=== PATIENT | female | born 1945 | race Caucasian/White ===

== ENCOUNTER 2016-10-15 09:02 | Day surgery (SDC) | payer BC ==
--- NOTE | ~2016-10-15 | EGD ---
EGD REPORT [facility] [address] [place]. [address] NAME: IRCKY CARR : [birth year] STATUS : REG [facility]#: [id number] AGE: 70 ADM/REG DATE : 10/15/16 MR#: [id number] REPORT SERV DATE: 10/15/16 DICTATED BY: JOSHUA VILLA DATE: 10/15/16 REPORT STATUS : Draft [facility] DATE: 10/15/16 Endoscopy Center Patient Name: Ricky Carr Date of : 1945 Attending MD: JOSHUA VILLA, Procedure Date No Time: 10/15/2016 Procedure: Upper GI endoscopy Indications: Heartburn Referring MD: MARYSOL GASCA MD Medicines: Monitored Anesthesia Care Complications: No immediate complications. Estimated blood loss: None. Procedure: Pre-Anesthesia Assessment: - ASA Grade Assessment: III - A patient with severe systemic disease. After obtaining informed consent, the endoscope was passed under direct vision. Throughout the procedure, the patient's blood pressure, pulse, and oxygen saturations were monitored continuously. The GIF H190 [id number] was introduced through the mouth, and advanced to the second part of duodenum. The upper GI endoscopy was accomplished without difficulty. The patient tolerated the procedure well. Findings: LA Grade C (one or more mucosal breaks continuous between tops of 2 or more mucosal folds, less than 75% circumference) esophagitis with no bleeding was found in the lower third of the esophagus. Biopsies were taken with a cold forceps for histology. Verification of patient identification for the specimen was done. Estimated blood loss was minimal. A 7 cm hiatus hernia was found. The exam of the stomach was otherwise normal. The examined duodenum was normal. Impression: - LA Grade C reflux esophagitis. Biopsied. - Hiatus hernia. - Normal examined duodenum. Recommendation: - Return to previous diet. - Continue present medications. - Use Protonix (pantoprazole) 40 mg PO BID. - Repeat the upper endoscopy in 3 months to check healing. Procedure Code(s): --- Professional --- EGD REPORT [facility] [address] [facility] [address] [place]. [address] NAME: RICKY CARR : [birth year] STATUS : REG [facility] PAT#: [id number] AGE: 70 ADM/REG DATE : 10/15/16 MR#: [id number] REPORT SERV DATE: 10/15/16 DICTATED BY: JOSHUA VILLA DATE: 10/15/16 REPORT STATUS : Draft TRANSCRIBED BY: [employer] DATE: 10/15/16 73098, Esophagogastroduodenoscopy, flexible, transoral; with biopsy, single or multiple Diagnosis Code(s): --- Professional --- K21.0, Gastro-esophageal reflux disease with esophagitis K44.9, Diaphragmatic hernia without obstruction or gangrene R12, Heartburn CPT copyright 2013 [employer]. All rights reserved. The codes documented in this report are preliminary and upon milk receiver review may be revised to meet current compliance requirements. JOSHUA VILLA, 10/15/2016 10:51 AM Number of Addenda: 0 Note Initiated On: 10/15/2016 10:24 AM Scope Withdrawal Time 0 hours 0 minutes 0 seconds [address] [facility] [place] [place] [address]
--- NOTE | ~2016-10-15 | EGD ---
EGD REPORT [facility] [address] [place]. [address] NAME: RICKY CRAR : 41 STATUS : REG [facility]#: [id number] AGE: 70 ADM/REG DATE : 10/15/16 MR#: [id number] REPORT SERV DATE: 10/15/16 DICTATED BY: JOSHUA VILLA DATE: 10/15/16 REPORT STATUS : Draft [facility]: [facility] DATE: 10/15/16 Endoscopy Center Patient Name: Ricky Carr Date of : 1945 Attending MD: JOSHUA VILLA, Procedure Date No Time: 10/15/2016 Procedure: Colonoscopy Indications: Follow-up of Crohn's disease of the colon Referring MD: MARYSOL GASCA MD Medicines: Monitored Anesthesia Care Complications: No immediate complications. Estimated blood loss: None. Procedure: Pre-Anesthesia Assessment: - ASA Grade Assessment: III - A patient with severe systemic disease. After I obtained informed consent, the scope was passed under direct vision. Throughout the procedure, the patient's blood pressure, pulse, and oxygen saturations were monitored continuously. The [facility] [id number] was introduced through the anus and advanced to the terminal ileum. The colonoscopy was performed without difficulty. The patient tolerated the procedure well. The quality of the bowel preparation was good. Findings: The perianal and digital rectal examinations were normal. The terminal ileum appeared normal. Normal mucosa was found in the transverse colon, in the ascending colon and in the cecum. Biopsies were taken with a cold forceps for histology. Verification of patient identification for the specimen was done. Estimated blood loss was minimal. Normal mucosa was found in the sigmoid colon and in the descending colon. Biopsies were taken with a cold forceps for histology. Verification of patient identification for the specimen was done. Estimated blood loss was minimal. A patchy area of mildly erythematous mucosa was found in the rectum. Biopsies were taken with a cold forceps for histology. Verification of patient identification for the specimen was done. Estimated blood loss was minimal. The exam was otherwise without abnormality on direct and retroflexion views. Impression: - The examined portion of the ileum was normal. - Normal mucosa in the transverse colon, in the ascending colon and in the cecum. Biopsied. - Normal mucosa in the sigmoid colon and in the EGD REPORT [place] [address] [place]. [address] NAME: RICKY CARR : [birth year] STATUS : REG [facility]#: [id number] AGE: 70 ADM/REG DATE : 10/15/16 MR#: [id number] REPORT SERV DATE: 10/15/16 DICTATED BY: JOSHUA VILLA DATE: 10/15/16 REPORT STATUS : Draft TRANSCRIBED BY: [employer] DATE: 10/15/16 descending colon. Biopsied. - Erythematous mucosa in the rectum. Biopsied. - The examination was otherwise normal on direct and retroflexion views. Recommendation: - Patient has a contact number available for emergencies. The signs and symptoms of potential delayed complications were discussed with the patient. Return to normal activities tomorrow. Written discharge instructions were provided to the patient. - Return to previous diet. - Continue present medications. - Await pathology results. Procedure Code(s): --- Professional --- 03129, Colonoscopy, flexible, proximal to splenic flexure; with biopsy, single or multiple Diagnosis Code(s): --- Professional --- K50.10, Crohn's disease of large intestine without complications K62.9, Disease of anus and rectum, unspecified CPT copyright 2013 [employer]. All rights reserved. The codes documented in this report are preliminary and upon suction roller review may be revised to meet current compliance requirements. JOSHUA ALLEN, 10/15/2016 11:36 AM Number of Addenda: 0 Note Initiated On: 10/15/2016 10:20 AM Scope Withdrawal Time 0 hours 10 minutes 8 seconds [address] [place] [address]
[~2016-10-15 09:02] MED LIST: AVAP150 PO; BENICAR20 PO; CALTRA600D PO; CARDCD300 PO; CARTIA XT120 MG/24 PO; CELEXA20 PO; COREG3 PO; FEMARA PO; FERGON240 MG PO; HUM; HUMIRA PEN SC; IMDUR30 PO; IRON PO; MEVACOR40 MG PO; MOBIC7.5 PO; NEXIUM40 PO; NOLV10 PO; PREV30 PO; PROTONIX PO; SULFAZINE EC500 MG PO; ZANAFLEX 4 MG TA4 MG PO
== END 2016-10-15 23:59 | disposition home or self-care (01) ==
LOC: DMU 09:02
PROVIDERS: Internal Medicine Gastroenterology
PROC: 0DBH8ZX Excision of Cecum, Via Natural or Artificial Opening Endoscopic, Diagnostic (ICD-10-PCS; 2016-10-15)
PROC: 0DBK8ZX Excision of Ascending Colon, Via Natural or Artificial Opening Endoscopic, Diagnostic (ICD-10-PCS; 2016-10-15)
PROC: 0DBL8ZX Excision of Transverse Colon, Via Natural or Artificial Opening Endoscopic, Diagnostic (ICD-10-PCS; 2016-10-15)
PROC: 0DBM8ZX Excision of Descending Colon, Via Natural or Artificial Opening Endoscopic, Diagnostic (ICD-10-PCS; 2016-10-15)
PROC: 0DB38ZX Excision of Lower Esophagus, Via Natural or Artificial Opening Endoscopic, Diagnostic (ICD-10-PCS; 2016-10-15)
PROC: 0DBN8ZX Excision of Sigmoid Colon, Via Natural or Artificial Opening Endoscopic, Diagnostic (ICD-10-PCS; principal; 2016-10-15 10:30)
PROC: 0DBP8ZX Excision of Rectum, Via Natural or Artificial Opening Endoscopic, Diagnostic (ICD-10-PCS; 2016-10-15 10:30)
DX: K52.9 Noninfective gastroenteritis and colitis, unspecified (principal); K50.10 Crohn's disease of large intestine without complications; K21.0 Gastro-esophageal reflux disease with esophagitis; K22.10 Ulcer of esophagus without bleeding; K44.9 Diaphragmatic hernia without obstruction or gangrene; I10 Essential (primary) hypertension; M45.9 Ankylosing spondylitis of unspecified sites in spine; Z95.0 Presence of cardiac pacemaker; Z88.5 Allergy status to narcotic agent; Z79.899 Other long term (current) drug therapy
CPT/HCPCS: 88305; 88312

== ENCOUNTER 2016-12-01 23:00 | Emergency (ER) | payer BC ==
[2016-12-02 00:19] LABS: BASOPHILS 0.2 %; BASOPHILS ABSOLUTE 0.02 10/3/uL (0.0-0.16); EOSINOPHILS 0 %; ER CBC TAT 0 Hrs 07 Mins; HEMATOCRIT 32.9 % (36.0-48.0); HEMOGLOBIN 10.9 g/dL (12.0-16.0); IMMATURE GRANULOCYTES 0.2 %; IMMATURE GRANULOCYTES ABSOLUTE 0.02 10/3/uL (0.0-0.11); LYMPHOCYTES 10.8 %; LYMPHOCYTES ABSOLUTE 1.03 10/3/uL (0.67-4.30); MEAN CORPUS HGB CONC 33.1 g/dL (32.0-36.0); MEAN CORPUSCULAR HEMOGLOB 29.2 pg (26.0-34.0); MEAN CORPUSCULAR VOLUME 88.2 fL (80-100); MEAN PLATELET VOLUME 13.1 fL (9.2-13.0); MONOCYTES 13.9 %; MONOCYTES ABSOLUTE 1.32 10/3/uL (0.21-1.20); NEUTROPHILS 74.9 %; NEUTROPHILS ABSOLUTE 7.12 10/3/uL (2.02-8.40); RBC DISTRIBUTION WIDTH 13.2 % (12.0-16.0); RED CELL COUNT 3.73 10/6/uL (4.0-5.6); WHITE BLOOD CELLS 9.5 10/3/uL (4.5-10.5)
[2016-12-02 00:20] LABS: MANUAL DIFF NO %; PLATELET COUNT 144 10/3/uL (150-400)
[2016-12-02 00:36] LABS: ASCORBIC ACID (UR NOT ORDER) NEG (NEG); BILIRUBIN, URINE NEGATIVE (NEG); ER URINALYSIS TAT 0 Hrs 00 Mins; KETONE, URINE NEGATIVE (NEG); LEUKOCYTE ESTERASE(NOT OR TRACE (NEG); NITRITE (URINE) NEG (NEG); WBC (NOT ORDERED) (RFLEX) 16 (0-5)
[2016-12-02 00:38] LABS: LACTATE 1.6 MMOL/L (0.3-2.4)
[2016-12-02 02:18] LABS: BUN (BLOOD UREA NITROGEN) 28 MG/DL (6-23); CALCIUM, SERUM 8.7 MG/DL (8.5-10.4); CHLORIDE, SERUM 101 MMOL/L (96-112); CO2 (CARBON DIOXIDE) 25 MMOL/L (24-34); CREATININE 2.16 MG/DL (0.55-1.02); GFR AFRICAN AMERICAN 26 ML/MIN (>=60); GFR NON AFRICAN AMERICAN 22 ML/MIN (>=60); GLUCOSE, SERUM 101 MG/DL (60-99); POTASSIUM, SERUM 3.3 MMOL/L (3.5-5.3); SGOT(AST) 38 U/L (5-40); SGPT(ALT) 23 U/L (5-65); SODIUM, SERUM 139 MMOL/L (135-148); TOTAL BILIRUBIN 0.3 MG/DL (0-1.2); TOTAL PROTEIN 6.6 G/DL (6.0-8.5)
[2016-12-02 02:21] LABS: A/G RATIO 0.7 (0.7-1.9); ALBUMIN 2.7 G/DL (3.5-5.0); ALKALINE PHOSPHATASE 120 U/L (45-117); GLOBULIN 3.9 G/DL (2.5-4.1)
[2016-12-02 02:45] LABS: PROCALCITONIN 2.44 ng/mL (<0.5)
== END 2016-12-02 02:52 | disposition home or self-care (01) ==
LOC: ER 23:00
PROVIDERS: Emergency Medicine
DX: N28.9 Disorder of kidney and ureter, unspecified (principal); N39.0 Urinary tract infection, site not specified; F41.9 Anxiety disorder, unspecified; Z95.0 Presence of cardiac pacemaker; Z88.5 Allergy status to narcotic agent; Z88.1 Allergy status to other antibiotic agents; Z88.8 Allergy status to other drugs, medicaments and biological substances; Z79.899 Other long term (current) drug therapy
CPT/HCPCS: 71010; 74176; 80053; 81001; 83605; 83690; 84145; 85025; 87040; 87328; 87329; 87493; 87493-59; 89055; 99284; A9270-GY

== ENCOUNTER 2017-01-18 07:31 | Day surgery (SDC) | payer BC ==
--- NOTE | ~2017-01-18 | EGD ---
EGD REPORT [facility] [address] [place]. [address] NAME: RICKY CARR : 41 STATUS : REG [facility] [place] PAT#: [id number] AGE: 71 ADM/REG DATE : 01/18/17 MR#: [id number] REPORT SERV DATE: 01/18/17 DICTATED BY: JOSHUA VILLA DATE: 01/18/17 REPORT STATUS : Draft TRANSCRIBED BY: [employer] DATE: 01/18/17 Endoscopy Center Patient Name: Ricky Carr Date of : 1945 Attending MD: JOSHUA VILLA, Procedure Date No Time: 01/18/2017 Procedure: Upper GI endoscopy Indications: Follow-up of reflux esophagitis Referring MD: MARYSOL GASCA MD Medicines: Monitored Anesthesia Care Complications: No immediate complications. Estimated blood loss: None. Procedure: Pre-Anesthesia Assessment: - ASA Grade Assessment: III - A patient with severe systemic disease. After obtaining informed consent, the endoscope was passed under direct vision. Throughout the procedure, the patient's blood pressure, pulse, and oxygen saturations were monitored continuously. The GIF H190 [id number] was introduced through the mouth, and advanced to the second part of duodenum. The upper GI endoscopy was accomplished without difficulty. The patient tolerated the procedure well. Findings: LA Grade C (one or more mucosal breaks continuous between tops of 2 or more mucosal folds, less than 75% circumference) esophagitis with no bleeding was found in the lower third of the esophagus. A large hiatus hernia was present. 7 cm The cardia and gastric fundus were otherwise normal on retroflexion. The exam of the stomach was otherwise normal. The examined duodenum was normal. Impression: - LA Grade C reflux esophagitis. - Hiatus hernia. - Normal examined duodenum. Recommendation: - Await pathology results. - Return to previous diet. - Continue present medications. - Will likely need referral to surgeon. Will discuss with patient. Procedure Code(s): --- Professional --- 36603, Esophagogastroduodenoscopy, flexible, transoral; diagnostic, including collection of specimen(s) by EGD REPORT [address] [address] NAME: RICKY CARR : [birth year] STATUS : REG [facility] [place] PAT#: [id number] AGE: 71 ADM/REG DATE : 01/18/17 MR#: [id number] REPORT SERV DATE: 01/18/17 DICTATED BY: JOSHUA VILLA DATE: 01/18/17 REPORT STATUS : Draft TRANSCRIBED BY: [employer] DATE: 01/18/17 brushing or washing, when performed (separate procedure) Diagnosis Code(s): --- Professional --- K21.0, Gastro-esophageal reflux disease with esophagitis K44.9, Diaphragmatic hernia without obstruction or gangrene CPT copyright 2013 [employer]. All rights reserved. The codes documented in this report are preliminary and upon spring production supervisor review may be revised to meet current compliance requirements. JOSHUA VILLA, 01/18/2017 9:41 AM Number of Addenda: 0 Note Initiated On: 01/18/2017 9:14 AM Scope Withdrawal Time 0 hours 0 minutes 0 seconds
--- NOTE | ~2017-01-18 | EGD ---
EGD REPORT [facility] [address] [place] [address] NAME: RICKY CARR : 41 STATUS : REG [facility] PAT#: [id number] AGE: 71 ADM/REG DATE : 01/18/17 MR#: [id number] REPORT SERV DATE: 01/18/17 DICTATED BY: JOSHUA VILLA DATE: 01/18/17 REPORT STATUS : Draft TRANSCRIBED BY: [employer] DATE: 01/18/17 Endoscopy Center Patient Name: Ricky Carr Date of : 1945 Attending MD: JOSHUA VILLA, Procedure Date No Time: 01/18/2017 Procedure: Upper GI endoscopy Indications: Follow-up of reflux esophagitis Referring MD: MARYSOL GASCA MD Medicines: Monitored Anesthesia Care Complications: No immediate complications. Estimated blood loss: None. Procedure: Pre-Anesthesia Assessment: - ASA Grade Assessment: III - A patient with severe systemic disease. After obtaining informed consent, the endoscope was passed under direct vision. Throughout the procedure, the patient's blood pressure, pulse, and oxygen saturations were monitored continuously. The GIF H190 [id number] was introduced through the mouth, and advanced to the second part of duodenum. The upper GI endoscopy was accomplished without difficulty. The patient tolerated the procedure well. Findings: LA Grade C (one or more mucosal breaks continuous between tops of 2 or more mucosal folds, less than 75% circumference) esophagitis with no bleeding was found in the lower third of the esophagus. A large hiatus hernia was present. 7 cm The cardia and gastric fundus were otherwise normal on retroflexion. The exam of the stomach was otherwise normal. The examined duodenum was normal. Impression: - LA Grade C reflux esophagitis. - Hiatus hernia. - Normal examined duodenum. Recommendation: - Await pathology results. - Return to previous diet. - Continue present medications. - Will likely need referral to surgeon. Will discuss with patient. Diagnosis Code(s): --- Professional --- K21.0, Gastro-esophageal reflux disease with esophagitis K44.9, Diaphragmatic hernia without obstruction or EGD REPORT [facility] [address] [place] [address] NAME: RICKY CARR : [birth year] STATUS : REG [facility] [place] PAT#: [id number] AGE: 71 ADM/REG DATE : 01/18/17 MR#: [id number] REPORT SERV DATE: 01/18/17 DICTATED BY: JOSHUA VILLA DATE: 01/18/17 REPORT STATUS : Draft TRANSCRIBED BY: [employer] DATE: 01/18/17 gangrene JOSHUA VILLA, 01/18/2017 9:41 AM Number of Addenda: 0 Note Initiated On: 01/18/2017 9:14 AM Scope Withdrawal Time 0 hours 0 minutes 0 seconds [address] [facility] [place] [address]
[2017-01-18 08:38] LABS: CALCIUM, SERUM 9.3 MG/DL (8.5-10.4); CHLORIDE, SERUM 107 MMOL/L (96-112); CO2 (CARBON DIOXIDE) 29 MMOL/L (24-34); GFR AFRICAN AMERICAN 47 ML/MIN (>=60); GFR NON AFRICAN AMERICAN 40 ML/MIN (>=60); GLUCOSE, SERUM 97 MG/DL (60-99); SODIUM, SERUM 143 MMOL/L (135-148)
[2017-01-18 08:42] LABS: BUN (BLOOD UREA NITROGEN) 20 MG/DL (6-23); CREATININE 1.31 MG/DL (0.55-1.02)
== END 2017-01-18 23:59 | disposition home or self-care (01) ==
LOC: DMU 07:31
PROVIDERS: Anesthesiology; Internal Medicine Gastroenterology
PROC: 0DB58ZX Excision of Esophagus, Via Natural or Artificial Opening Endoscopic, Diagnostic (ICD-10-PCS; principal; 2017-01-18 09:00)
DX: K22.10 Ulcer of esophagus without bleeding (principal); K44.9 Diaphragmatic hernia without obstruction or gangrene; I10 Essential (primary) hypertension; Z98.51 Tubal ligation status; Z95.0 Presence of cardiac pacemaker; Z90.710 Acquired absence of both cervix and uterus; Z90.11 Acquired absence of right breast and nipple
CPT/HCPCS: 80048; 88305